=== PATIENT | female | born 1995 | race Caucasian/White ===

== ENCOUNTER 2017-11-01 10:18 | Emergency (ER) | payer OTHER ==
[2017-11-01 10:32] VITALS: RESP 16
[2017-11-01 11:15] LABS: Appearance,Urine Cloudy (Clear); Bacteria,Urine Occasional /hpf; Bilirubin,Urine Negative (Negative); Blood,Urine Moderate (Negative); Color,Urine Light Yellow; Glucose,Urine (UA) 4+ (Negative); Leukocyte Esterase,Urine Large (Negative); Nitrite,Urine Negative (Negative); Protein,Urine 1+ (Negative); RBC,Urine 31 /hpf (0-5); Specific Gravity,Urine 1.031 (1.001-1.035); Urobilinogen,Urine <2.0 mg/dL (<2.0); WBC,Urine >182 /hpf (0-5)
[2017-11-01 11:17] LABS: Ketones,Urine 2+ (Negative)
[2017-11-01 11:38] LABS: Glucose,Whole Blood 328 mg/dL (75-99)
[2017-11-01] MEDS ORDERED: SODIUM CHLORIDE 0.9% 1,000 ML IV ONE (11:43)
[2017-11-01] MEDS ORDERED: cefTRIAXone IN SWFI 1,000 MG/10 ML SYRINGE IVP STA (11:52)
--- NOTE | 2017-11-01 11:53 | ED ---
General Adult HPI - General Chief complaint: Abdominal Pain Stated complaint: Vaginal Bleeding Time Seen by Provider: 11/01/17 10:49 Source: patient Mode of arrival: ambulatory Limitations: no limitations - History of Present Illness Initial comments: Karen Rdz is a 22-year-old female with past medical history most significant for type 1 diabetes who presents to the emergency department today for evaluation of dysuria. Patient reports that on Tuesday she began experiencing urinary frequency, dysuria and what she describes as pressure or constant sensation of the need to urinate. Patient reports that she feels a near constant need to urinate, when she urinates she is only able to produce a small amount of urine and has no relief of her symptoms. Patient reports that she has never had a urinary tract infection in the past. She does state that she has a chronic vaginal candidiasis secondary to poorly controlled diabetes, she follows with her primary care physician about this and has been prescribed fluconazole in the past. Patient reports she is in a monogamous relationship, she has had her tubes tied and has no concern for . She has no concern for sexual transmitted infection. She has no history of sexually transmitted infections. She denies any fevers, chills, nausea, vomiting or change in bowel habits. She denies any pain, chest pain or trouble breathing. Patient states that she has recently changed physicians and has been on a new insulin regimen, she states that her sugars have been poorly controlled usually ranging in the high 200s, however she follows frequently with her physician about this. She states that she has never had DKA or been hospitalized due to a diabetic emergency. She states that she did not take any insulin yet today and expect that her blood glucose will be quite elevated. - Related Data Home Medications Medication Instructions Recorded Confirmed Insulin NPL/Insulin Lispro 25 unit SQ HS 11/01/17 11/01/17 [humaLOG MIX 75-25 VIAL] Previous Rx's Medication Instructions Recorded Cephalexin [Keflex] 500 mg PO Q12HR 7 Days #14 cap 11/01/17 Fluconazole [Diflucan] 150 mg PO DAILY #3 tab 11/01/17 Phenazopyridine HCl [Pyridium] 200 mg PO BID #6 tablet 11/01/17 Allergies Allergy/AdvReac Type Severity Reaction Status Date / Time No Known Allergies Allergy Verified 11/01/17 11:38 Review of Systems ROS Statement: Those systems with pertinent positive or pertinent negative responses have been documented in the HPI. ROS Other: All systems not noted in ROS Statement are negative. Constitutional: Denies: fever, chills ENT: Denies: throat pain Respiratory: Denies: cough, dyspnea Cardiovascular: Denies: chest pain, palpitations Endocrine: Denies: fatigue Gastrointestinal: Reports: abdominal pain (suprapubic pain). Denies: nausea, vomiting Genitourinary: Reports: urgency, dysuria, frequency, hematuria, dyspareunia ( chronic). Denies: discharge, abnormal menses Musculoskeletal: Denies: back pain Skin: Denies: rash, lesions Neurological: Denies: headache, weakness Psychiatric: Denies: anxiety Past Medical History Past Medical History: Diabetes Mellitus History of Any Multi-Drug Resistant Organisms: None Reported Past Surgical History: Section, Cholecystectomy Past Psychological History: No Psychological Hx Reported Smoking Status: Never smoker Past Alcohol Use History: None Reported Past Drug Use History: None Reported General Exam Limitations: no limitations General appearance: alert, in no apparent distress Head exam: Present: atraumatic, normocephalic, normal inspection Eye exam: Present: normal appearance, PERRL, EOMI. Absent: scleral icterus, conjunctival injection, periorbital swelling ENT exam: Present: normal exam Neck exam: Present: normal inspection Respiratory exam: Absent: respiratory distress Cardiovascular Exam: Present: regular rate, tachycardia GI/Abdominal exam: Present: soft, tenderness (to deep palpation of suprapubic region ). Absent: distended Rectal exam: Present: normal inspection External exam: Present: erythema, swelling, other (Erythema and white discharge consistent with vaginal candidiasis) Speculum exam: Present: erythema, other (Thick white discharge consistent with vaginal candidiasis) Extremities exam: Present: normal inspection Back exam: Present: normal inspection Neurological exam: Present: alert, oriented X3 Psychiatric exam: Present: normal affect, normal mood Skin exam: Present: warm, dry, intact, normal color. Absent: rash Course Vital Signs 11/01/17 11/01/17 10:29 12:01 Temperature 97.2 F L 98.3 F Pulse Rate 101 H 91 Respiratory 16 16 Rate Blood Pressure 144/83 117/76 O2 Sat by Pulse 99 99 Oximetry Medical Decision Making - Medical Decision Making Patient was seen and evaluated, history was obtained from the patient As a poorly controlled diabetic with chronic vaginal candidiasis currently experiencing symptoms of dysuria, hematuria and urinary frequency she has no history of urinary tract infection and has no history of sexual transmitted infections past. Is in a monogamous relationship with no concern for sexually transmitted infections, and addition she has had her tubes tied and has no concern for . Urinalysis, urine were ordered Urinalysis reveals a urinary tract infection as well as glucosuria and ketonuria - point of care glucose is >300 Labs were ordered to evaluate for DKA Urinalysis and [id number] glucose labs were discussed with the patient, she states that she doesn't feel she needs any further workup because she didn't take her insulin this morning and she has her insulin in the car. She states she'll take her insulin upon leaving. She has never had DKA or been hospitalized for any diabetic emergencies to her knowledge. She does not wish to pursue any further workup. Pelvic exam reveals vaginal candidiasis, no cervical motion tenderness or strawberry cervix, no concern for sexual transmitted infections, swabs were obtained and sent to lab At this time the patient does not want to pursue any further workup for her hyperglycemia or glucosuria and ketonuria, the patient does have a urinary tract infection and is experiencing symptomatic dysuria. I will plan to discharge her home with oral antibiotics as well as oral antifungal for vaginal candidiasis. Patient has her home insulin and will take it on discharge. Patient was advised that having an infection takes her increased risk of having poorly controlled sugars and that if her sugars continue to be elevated she needs to return to the emergency department for further evaluation. All questions pertaining to care were answered best my ability patient was discharged home. - Lab Data Lab Results 11/01/17 11/01/17 11/01/17 Range/Units 10:45 10:45 11:36 POC Glucose (mg/dL) 328 H (75-99) mg/dL POC Glu Emergency Specialist ID Mare Dozier Urine Color Light Yellow Urine Appearance Cloudy H (Clear) Urine pH 6.0 (5.0-8.0) Ur Specific Browning 1.031 (1.001-1.035) Urine Protein 1+ H (Negative) Urine Glucose (UA) 4+ H (Negative) Urine Ketones 2+ H (Negative) Urine Blood Moderate H (Negative) Urine Nitrite Negative (Negative) Urine Bilirubin Negative (Negative) Urine Urobilinogen <2.0 (<2.0) mg/dL Ur Leukocyte Esterase Large H (Negative) Urine RBC 31 H (0-5) /hpf Urine WBC >182 H (0-5) /hpf Urine WBC Clumps Rare H (None) /hpf Urine Bacteria Occasional H (None) /hpf Urine HCG, Qual Not Detected (Not Detectd) Disposition Clinical Impression: UTI (urinary tract infection), Vaginal candidiasis, Hyperglycemia due to type 1 diabetes mellitus, Ketonuria Disposition: HOME SELF-CARE Condition: Good Instructions: Urinary Tract Infection in Women (ED), Vulvovaginal Candidiasis ( ED) Prescriptions: Cephalexin [Keflex] 500 mg PO Q12HR 7 Days #14 cap Fluconazole [Diflucan] 150 mg PO DAILY #3 tab Phenazopyridine HCl [Pyridium] 200 mg PO BID #6 tablet Referrals: Nonstaff,Physician [Primary Care Provider] - 1-2 days Time of Disposition: 11:53
[2017-11-01 12:02] VITALS: BP 117/76; PULSE 91; TEMP 98.3
[2017-11-02 15:43] LABS: C. trachomatis,PCR Negative (Neg,Equiv); Chlamydia trachomatis Source Cervix; N. gonorrhoeae,PCR Negative (Neg,Equiv); Neisseria Source Cervix
== END 2017-11-01 12:10 | disposition home or self-care (01) ==
LOC: EC 10:18
DX: B37.3 Candidiasis of vulva and vagina (principal); E10.65 Type 1 diabetes mellitus with hyperglycemia; N39.0 Urinary tract infection, site not specified; R82.4 Acetonuria; R81 Glycosuria; Z79.4 Long term (current) use of insulin; Z90.49 Acquired absence of other specified parts of digestive tract
CPT/HCPCS: 36415; 81001; 81025; 87070; 87086; 87205; 87491; 87591; 87808; 99284